=== PATIENT | female | born 1950 | race Caucasian/White ===

== ENCOUNTER 2025-04-29 08:11 | Day surgery (SDC) | payer MEDICARE, OTHER, SELFPAY ==
--- NOTE | 2025-04-21 16:08 | HP.PCM.OB_ITS ---
History and Physical Date of Admission: 04/29/25 Expand All Collapse All Pre-Op History and Physical HPI: The patient is a 75 year old female presenting for discussion regarding PMB, EM thickening. Pt with newly dx a. Fib s/p cardioversion x 2 now on eloquis. Scheduled for stress test on 04/23/25 pre-operative visit. She is scheduled for Hysteroscopy D&C and possible polypectomy, for Thickened Endometrium and PMB on 04/29/25. Procedure discussed along with risks, benefits and complications. Other alternatives discussed for management. Consent form signed? Yes. PAST MEDICAL HISTORY PAST MEDICAL HISTORY Diagnosis Date ? Hypertension ? PVC (premature ventricular contraction) ? Sciatica PAST SURGICAL HISTORY PAST SURGICAL HISTORY Procedure Laterality Date ? COLONOSCOPY 2008: 2016 ? D&C, DIAG AND/OR THERAPEUTIC 2010 ? LAPS SURG CHOLECYSTECTOMY W/CHOLANGIOGRAPHY 03-25-13 ? PAST SURGICAL HISTORY OF top teeth removal ? TONSILLECTOMY HX 1950s ? TUBAL LIGATION, 1980s with D&C CURRENT MEDICATIONS Current Outpatient Medications Medication Sig Dispense Refill ? miSOPROStol (CYTOTEC) 200 mcg tablet Insert 2 tablets vaginally night prior to EMB and 2 tablets morning of procedure. Each dose should be in vagina for 6-8 hours. 4 tablet 0 ? cyanocobalamin, vitamin B-12, (VITAMIN B-12 PO) Take 1 tablet by mouth once daily. ? cholecalciferol (VITAMIN D-3) 400 unit tab Take 1 tablet by mouth once daily. ? apixaban (ELIQUIS) 5 mg tab(s) Take 5 mg by mouth two times a day. ? flecainide (TAMBOCOR) 50 mg tablet Take 50 mg by mouth two times a day. ? estradiol (ESTRACE) 0.01 % (0.1 mg/gram) vaginal cream Use 0.25 g vaginally two times a week. ? atenolol 50 mg tablet Take 50 mg by mouth. 1/2 pill in morning and 1/2 pill at night (Patient taking differently: Take 50 mg by mouth. 1/2 pill in morning and 1/2 pill at night) ? ascorbic acid (VITAMIN C) 500 mg tablet Take 500 mg by mouth once daily. ? Multivitamin ORAL capsule Take 1 capsule by mouth once daily. ? guanfacine 1 mg ORAL tablet 0 No current facility-administered medications for this visit. ALLERGIES: Indocin [Indomethacin Sodium], Novacain [Procaine Hcl], Penicillins, Red Dye, Sulfa (Sulfonamide Antibiotics), Theophylline, and Toprol Xl [Metoprolo l] PERSONAL HISTORY: [SOCIAL HISTORY] [SOCIAL HISTORY] Social History Tobacco Use ? Smoking status: Never ? Smokeless tobacco: Never Substance Use Topics ? Alcohol use: No ? Drug use: No FAMILY HISTORY: FAMILY HISTORY FAMILY HISTORY Problem Relation Age of Onset ? Diabetes Mother ? Heart Father ? Anesthesia Father ? Coronary Artery Disease Father ? Heart Mother ? Hypertension Mother ? Hypertension Father ? Stroke Mother REVIEW OF SYMPTOMS: negative except as noted above PHYSICAL EXAMINATION: VITALS: Blood pressure 148/78, height 168.9 cm (5' 6.5), weight 100.2 kg (221 lb). GENERAL: The patient is well nourished, well hydrated in no acute distress. , The patient is oriented to time, place, and person. NECK: full range of motino LUNGS: Clear to auscultation bilaterally. no wheezes, rhonchi or rales HEART: Regular rate and rhythm, Normal heart sounds, and No murmurs or gallops IMPRESSION: 75yo with thickened EM and PMB PLAN: Hysteroscopy, D&C, possible polypectomy w/ symphion Pt has been counseled on risks/benefits and alternatives of surgery including but not limited to anesthesia, bleeding, infection, uterine perforation with subsequent injury to pelvic structures including bowel, bladder, ureters and vessels. Pt wishes to proceed with surgery at this time. Pre and post op instructions reviewed H/o A fib on Eloquis- last echo 01/2024 WNL (care everywhere note 10/26/24) - stress test scheduled for this week 04/23 - will have cardiology send pre op clearance I have reviewed and updated past medical and surgical history, medications and allergies Nishi Willis MD Office Visit on 04/21/2025 Note shared with patient
--- NOTE | 2025-04-24 00:59 | PAT.ANE_ITS ---
Pre-Assessment Diagnosis/Proposed Procedure Planned Operative Procedure(s): HYSTEROSCOPY D&C Anesthesia History Anesthesia History - aircraft shipping checker: Anesthesia History - aircraft shipping checker Hx Hospitalization No 04/21/25 11:25 Any Problems With Anesthesia No 04/21/25 11:25 Cholinesterase deficiency No 04/21/25 11:25 You/Your Family Experience No 04/21/25 11:25 fever (hyperthermia) with Relationship Recent Exposure to Contagious Disease Does patient have nerve No 04/21/25 11:25 stimulator Patient instructed to have device shut off --Does patient have Pacemaker or ICD? When Was Last Pacemaker Check QUESTION #4 FULL TEXT: You/Your Family Experience fever (hyperthermia) with Anesthesia Last Oral Intake Last Oral intake: Last Oral Intake NPO since Meds taken in AM with sips of water? Meds patient instructed to take am of surgery PONV PONV - aircraft shipping checker: PONV - aircraft shipping checker Female Yes 04/21/25 11:25 HX of Motion Sickness No 04/21/25 11:25 HX of N/V After Surgery No 04/21/25 11:25 Non-Smoker Yes 04/21/25 11:25 Duration of Surgery greater No 04/21/25 11:25 than 60 minutes Number of Risk Factors 2 04/21/25 11:25 PONV Score Moderate Risk 04/21/25 11:25 Respiratory Assessment Respiratory Assessment - aircraft shipping checker: Respiratory Tract Infection Hx - aircraft shipping checker Hx Respiratory Tract Infection No 04/21/25 11:25 STOP Sleep Apnea STOP Sleep Apnea - aircraft shipping checker: STOP Sleep Apnea - aircraft shipping checker Hx Hypertension Yes: CONTROLLED WITH MED 04/21/25 11:25 Hx Sleep Apnea Yes: MILD NO MACHINE 04/21/25 11:25 REQUIRED CPAP No 04/21/25 11:25 BIPAP No 04/21/25 11:25 Do you snore loudly (louder than talking or can be heard Do you often feel tired/ fatigued/ sleepy during daytime? Has anyone observed you stop breathing during sleep? STOP Results Positive 04/21/25 11:25 QUESTION #5 FULL TEXT : Do you snore loudly (louder than talking or can be heard through closed doors)? 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 Specify any problems Hx of Preganancy in last 3 No 04/21/25 11:25 Months Nurse Filling Out Transfusion DSCHRIBER 04/21/25 11:25 & Questions: Date: 04/21/25 04/21/25 11:25 Time: 04/21/25 11:25 Patient unable to answer at this time (ie. confused, unrespo /Reproduction History /Reproductive History - aircraft shipping checker: /Reproductive Hx- aircraft shipping checker Hx Now No 04/21/25 11:25 Gestational Age (in weeks): EDC: Hx Hx Para Hx Section SAB No 04/21/25 11:25 Does the father of the baby or his family experience fever w Father of the baby Malignant Hypertension history comment [facility] Medical History (Updated 04/21/25 @ 11:41 by Claudia Crockett) Wears glasses Wears partial dentures Wears dentures Post-menopausal Anxiety Arthritis Ambulates with cane Low iron Dietary restriction Difficulty swallowing History of ulceration History of hiatal hernia History of diverticulitis Gastric reflux Shortness of breath on exertion Sleep apnea Non-smoker History of edema Purpura History of echocardiogram History of stress test History of cardioversion Cardiology follow-up encounter Hypertension History of atrial fibrillation Home Medications ?Medication ?Instructions ?Recorded ?Last Taken ?Type wjwhyxoq-hnsaatqlk-ncbhajfx oral 5 ml PO TID PRN STOMA CH 04/21/25 Unknown History suspension apixaban 5 mg tablet (Eliquis) 5 mg PO BID 04/21/25 Un known History ascorbic acid (vitamin C) 500 mg 500 mg PO DAILY 04/21 Unknown History tablet (C-500) atenolol 25 mg tablet 12.5 mg PO BID 04/21/25 Unkn own History cholecalciferol (vitamin D3) 50 50 mcg PO DAILY Unknown History mcg (2,000 unit) tablet (Vitamin D3) flecainide 50 mg tablet 50 mg PO Q12H 04/21/25 Unkno wn History guanfacine 1 mg tablet 1 mg PO QHS 04/21/25 Unknown History mecobalamin (vitamin B12) 1,000 1,000 mcg PO DAILY 06/03 Unknown History mcg lozenges multivitamin (Daily Multi-Vitamin 1 tab PO DAILY 04/21 Unknown History tablet) omeprazole 40 mg capsule,delayed 40 mg PO DAILY Unknown History release polyethylene glycol 400 0.25 % eye 2 drp ophthalmic (e ye) PRN PRN dry 04/21/25 Unknown History drops (Blink Tears) eyes Allergy/AdvReac Type Severity Reaction Status Date / Time indomethacin (From Indocin) Allergy Intermediate PT UNSURE Verified 04/21/25 11:16 OF REACTION procaine (From Novocain) Allergy Intermediate Other Verified 04/21/25 11:16 theophylline Allergy Intermediate PT UNSURE Verified 04/21/25 11:16 OF REACTION adhesive tape AdvReac Intermediate Rash Verified 04/21/25 11:16 metoprolol (From Toprol XL) AdvReac Intermediate Other Verified 04/21/25 11:16 Penicillins AdvReac Intermediate Itching Verified 04/21/25 11:16 Sulfa (Sulfonamide AdvReac Intermediate Itching Verified 04/21/25 11:16 Antibiotics) Surgical History (Updated 04/21/25 @ 11:41 by Claudia Crockett) Hx of right cataract extraction Hx of left cataract extraction Hx of colonoscopy Hx of cholecystectomy Hx of tonsillectomy Social History Smoking Status: Never smoker Audit: Pertinent Findings Pertinent Findings EKG Perinent findings: January 20, 2025. Sinus bradycardia with first-degree AV block. Intraventricular conduction defect. Left axis?possible anterior fascicular block. Consider LVH. Consider old anterior infarct. Stress test pertinent findings: 04/23/2025. Nondiagnostic for ischemia given baseline EKG changes, however no cardiac symptoms at maximal workload. Patient achieved 4.2 METS. Test was terminated due to fatigue. Echo (EF%) pertinent findings: January 21, 2024. EF is 62%. No hemodynamically significant valvular disease. Right ventricular systolic pressure is 25 mmHg. Consult pertinent findings: 04/23/2025. Dr. Polanco?cardiology. 1. Patient is low cardiovascular risk for proposed procedure. Okay to hold Eliquis prior to procedure. Continue atenolol and flecainide perioperatively. Additional pertinent findings: Coronary angiography. September 16, 2024. Mild nonobstructive coronary artery disease. Total calcium score is 95 involving the LAD. Recommendation Anesthesia Recommendation Anesthesia recommendation: OPTIMIZED for anesthesia
[2025-04-29] VITALS (11 sets, daily range): BP systolic 108–153; BP diastolic 56–91; PULSE 49–60; RESP 16–18; TEMP 36.2–36.6; O2SAT 99–100; BMI 34.6
--- NOTE | 2025-04-29 08:27 | PCM.PRE.AN2 ---
ASA Classification* ASA Classification ASA Classification: 2 Assessment & Plan Anesthesia* Anesthesia Assessment Anesthesia Assessment: Discussed sedation and/or anesthesia options, risks, benefits, and alternatives with patient/parents/legal guardian/POA. Questions invited. The patient/parents/legal guardian/POA seems to understand and agrees to proceed with anesthesia plan. Reviewed the physical assessment, medical history, allergy history and patient home medications list prior to surgery/procedure/anesthetic and documented any changes. Performed airway and anesthesia risk assessments. Anesthesia Type Anesthesia Type: MAC Anesthesia Focused Assessment* Airway Assessment Mouth opens: >3 cm Mallampati Score: II Labs Anesthesia Preop lab: CBC CHEMISTRY COAG Pre-Assessment Diagnosis/Proposed Procedure Planned Operative Procedure(s): HYSTEROSCOPY D&C Anesthesia History Anesthesia History - visual stylist: Anesthesia History - visual stylist Hx Hospitalization No 04/21/25 11:25 Any Problems With Anesthesia No 04/21/25 11:25 Cholinesterase deficiency No 04/21/25 11:25 You/Your Family Experience No 04/21/25 11:25 fever (hyperthermia) with Relationship Recent Exposure to Contagious Disease Does patient have nerve No 04/21/25 11:25 stimulator Patient instructed to have device shut off --Does patient have Pacemaker or ICD? When Was Last Pacemaker Check QUESTION #4 FULL TEXT: You/Your Family Experience fever (hyperthermia) with Anesthesia Last Oral Intake Last Oral intake: Last Oral Intake NPO since Meds taken in AM with sips of water? Meds patient instructed to take am of surgery PONV PONV - visual stylist: PONV - visual stylist Female Yes 04/21/25 11:25 HX of Motion Sickness No 04/21/25 11:25 HX of N/V After Surgery No 04/21/25 11:25 Non-Smoker Yes 04/21/25 11:25 Duration of Surgery greater No 04/21/25 11:25 than 60 minutes Number of Risk Factors 2 04/21/25 11:25 PONV Score Moderate Risk 04/21/25 11:25 Respiratory Assessment Respiratory Assessment - visual stylist: Respiratory Tract Infection Hx - visual stylist Hx Respiratory Tract Infection No 04/21/25 11:25 STOP Sleep Apnea STOP Sleep Apnea - visual stylist: STOP Sleep Apnea - visual stylist Hx Hypertension Yes: CONTROLLED WITH MED 04/21/25 11:25 Hx Sleep Apnea Yes: MILD NO MACHINE 04/21/25 11:25 REQUIRED CPAP No 04/21/25 11:25 BIPAP No 04/21/25 11:25 Do you snore loudly (louder than talking or can be heard Do you often feel tired/ fatigued/ sleepy during daytime? Has anyone observed you stop breathing during sleep? STOP Results Positive 04/21/25 11:25 QUESTION #5 FULL TEXT : Do you snore loudly (louder than talking or can be heard through closed doors)? 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 Specify any problems Hx of Preganancy in last 3 No 04/21/25 11:25 Months Nurse Filling Out Transfusion DSCHRIBER 04/21/25 11:25 & Questions: Date: 04/21/25 04/21/25 11:25 Time: 11:04/21/25 11:25 Patient unable to answer at this time (ie. confused, unrespo /Reproduction History /Reproductive History - visual stylist: /Reproductive Hx- visual stylist Hx Now No 04/21/25 11:25 Gestational Age (in weeks): EDC: Hx Hx Para Hx Section SAB No 04/21/25 11:25 Does the father of the baby or his family experience fever w Father of the baby Malignant Hypertension history comment Active Medications Active Medications: Current Medications Generic Name Dose Route Start Last Admin Trade Name Freq PRN Reason Stop Dose Admin Lactated Ringer's 1,000 mls @ 15 mls/hr 04/29/25 08:30 IV .Q48H JOSE PFSH Medical History Wears glasses Wears partial dentures Wears dentures Post-menopausal Anxiety Arthritis Ambulates with cane Low iron Dietary restriction Difficulty swallowing History of ulceration History of hiatal hernia History of diverticulitis Gastric reflux Shortness of breath on exertion Sleep apnea Non-smoker History of edema Purpura History of echocardiogram History of stress test History of cardioversion Cardiology follow-up encounter Hypertension History of atrial fibrillation Home Medications ?Medication ?Instructions ?Recorded ?Last Taken ?Type qpbprhjw-honizadyb-kprbkcus oral 5 ml PO TID PRN STOMACH 04/21/25 Unknown History suspension apixaban 5 mg tablet (Eliquis) 5 mg PO BID 04/21/25 Unknown History ascorbic acid (vitamin C) 500 mg 500 mg PO DAILY 04/21/25 Unknown History tablet (C-500) atenolol 25 mg tablet 12.5 mg PO BID 04/21/25 Unknown History cholecalciferol (vitamin D3) 50 50 mcg PO DAILY 04/21/25 Unknown History mcg (2,000 unit) tablet (Vitamin D3) flecainide 50 mg tablet 50 mg PO Q12H 04/21/25 Unknown History guanfacine 1 mg tablet 1 mg PO QHS 04/21/25 Unknown History mecobalamin (vitamin B12) 1,000 1,000 mcg PO DAILY 04/21/25 Unknown History mcg lozenges multivitamin (Daily Multi-Vitamin 1 tab PO DAILY 04/21/25 Unknown History tablet) omeprazole 40 mg capsule,delayed 40 mg PO DAILY 04/21/25 Unknown History release polyethylene glycol 400 0.25 % eye 2 drp ophthalmic (eye) PRN PRN dry 04/21/25 Unknown History drops (Blink Tears) eyes Allergy/AdvReac Type Severity Reaction Status Date / Time indomethacin (From Indocin) Allergy Intermediate PT UNSURE Verified 04/21/25 11:16 OF REACTION procaine (From Novocain) Allergy Intermediate Other Verified 04/21/25 11:16 theophylline Allergy Intermediate PT UNSURE Verified 04/21/25 11:16 OF REACTION adhesive tape AdvReac Intermediate Rash Verified 04/21/25 11:16 metoprolol (From Toprol XL) AdvReac Intermediate Other Verified 04/21/25 11:16 Penicillins AdvReac Intermediate Itching Verified 04/21/25 11:16 Sulfa (Sulfonamide AdvReac Intermediate Itching Verified 04/21/25 11:16 Antibiotics) Surgical History Hx of right cataract extraction Hx of left cataract extraction Hx of colonoscopy Hx of cholecystectomy Hx of tonsillectomy Social History Smoking Status: Never smoker Review of Systems (Anesthesia) ROS Narrative System reviewed and no additional complaints, except as documented.
[2025-04-29 09:02] LABS: Hematocrit 36.7 % (37-47); Hemoglobin 11.9 g/dL (12.0-15.0); Mean Corp Hgb Conc 32.4 g/dL (32-36); Mean Corpuscular Volume 94.6 fL (81-99); Mean Platelet Vol. 9.8 fl (6.2-12.0); Platelet Count 256 K/mm3 (150-450); RBC Distribution Width CV 12.7 % (11.6-14.6); RBC Distribution Width SD 43.8 fl (35.1-43.9); Red Blood Count 3.88 M/mm3 (4.2-5.4); White Blood Count 4.5 K/mm3 (4.4-11.0)
[2025-04-29] MEDS: Lactated Ringers 1,000 ML 15 ML IV (09:08)
[2025-04-29 09:35] LABS: Anion Gap 9 (5-15); BUN 11 mg/dL (4-19); BUN/Creat Ratio 17.4 RATIO (10-20); Calcium,Total 9.1 mg/dL (7.6-11.0); Carbon Dioxide 26.5 mmol/L (21.0-32.0); Chloride 105 mmol/L (98-108); Estimated Creatinine Clearance 72.80 ml/min (50-250); Glucose 102 mg/dL (70-99); Potassium 4.1 mmol/L (3.3-5.1)
[2025-04-29] MEDS: Midazolam 2 MG/2 ML Syringe IV (09:35)
[2025-04-29] MEDS: Lidocaine 1% (5 ml sdv) 5 ML Vial 4 ML IV (09:38)
--- NOTE | 2025-04-29 09:54 | PCM.DC ---
Discharge Instructions DC O2, CPAP, BIPAP needs Home O2 Discharge instructions: No Dressing / Incision May resume sexual activity in: 1 week Dressing / Incision Call your doctor if you observe: Fever of 101 or Higher, Inability to urinate, Using more than 1 pad per hour and Uncontrolled pain Follow Up Care Please Follow Up With: Nishi Aponte MD When: I will call you with pathology results in 1-2 weeks, if you feel you need an appointment please call [phone] Test Results: Test results from this visit will be discussed in further detail at your follow-up appointment, if applicable. Discharge Plan Admission Attending Provider: Nishi Aponte Primary Care Provider: Shannon Coello Instructions Print Language: [place] Discharge Orders/Prescriptions Prescriptions: No Action guanfacine 1 mg tablet 1 mg PO QHS atenolol 25 mg tablet 12.5 mg PO BID Eliquis 5 mg tablet 5 mg PO BID flecainide 50 mg tablet 50 mg PO Q12H omeprazole 40 mg capsule,delayed release(DR/EC) 40 mg PO DAILY goicmvhx-hybkspdig-qowhwtnq Suspension 5 ml PO TID PRN (Reason: STOMACH) multivitamin [Daily Multi-Vitamin] Tablet 1 tab PO DAILY mecobalamin (vitamin B12) 1,000 mcg lozenge 1,000 mcg PO DAILY Rx Instructions: allow to dissolve in mouth OR may chew lightly before swallowing cholecalciferol (vitamin D3) [Vitamin D3] 50 mcg (2,000 unit) tablet 50 mcg PO DAILY ascorbic acid (vitamin C) [C-500] 500 mg tablet 500 mg PO DAILY Blink Tears 0.25 % drops 2 drp ophthalmic (eye) PRN PRN (Reason: dry eyes) Referrals / Follow Up: Shannon Coello MD [Primary Care Provider, Medical] Disposition Disposition (needs filled in before D/C Order can be placed): Home, Self Care
--- NOTE | 2025-04-29 09:55 | PCM.OPRPT ---
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 Heating And Ventilating Worker: kathya crooks ms3 Tasks completed by first line production supervisor: Retracting Type of Anesthesia: MAC RN Documented Start/Stop Times: Operation Date: 04/29/25 10:00 Case Time Into Pre-Op 04/29/25 08:23 Anesthesia Start 04/29/25 09:33 Into Room 04/29/25 09:33 Procedure Start 04/29/25 09:45 Procedure Start Time: 09:45 Procedure Stop Time: 09:54 Select all DRAINS/GRAFTS/IMPLANTS that apply: None Estimated Blood Loss: <5cc Fluids Replaced: 300 Specimen collected: Yes Description of specimen(s) removed: endometrial curettings, Endocervical polyp Description of surgery: Informed consent was obtained the patient was taken the operating room she was placed in supine position. She was given anesthesia. She was then placed in the [facility] where she was prepped and draped in the normal sterile fashion. At this time the weighted speculum was placed in the posterior fornix of vagina. Single-tooth tenaculum was used to gently grasp the anterior lip the cervix. At this time the uterine cavity was sounded to approximately 7 cm. Gentle dilatation was performed once adequate dilatation of the cervix was achieved the hysteroscope using normal saline as a distention medium was placed. Tubal ostia visualized. small endocervical polyp noted- otherwise endometrium appears atrophic- Symphion resecting device used to obtain endometrial curettings and to perform endocervical polypectomy. Tissue will be sent to pathology for evaluation. Tenaculum removed. Good hemostasis. Instrument, lap count correct x 2. Vaginal Sweep was negative. Surgical Findings: atrophic endometrium, small endocervical polyp Complications Complications: No Admit VTE Documentation VTE Present on Admission: Yes VTE Mechan Device Prophylaxis: SCD's VTE Pharm Prophylaxis ordered?: No Reason prophylaxis not ordered: Treatment Not Indicated (patient on eloquis )
--- NOTE | 2025-04-29 10:00 | EMB_PTH ---
PATIENT: [facility] LOC: [facility] U#:[id number] AGE/SX: 75/F ROOM: RE04/29/[address]: Dr. Nishi Aponte, MDDOB: 1950 BED: DIS: 04/29/2025 SPEC #: [id number] RECD: 04/29/25 10:34 STATUS: LEANNA DANIELLE #: [id number] BEN: 04/29/25 10:[address]: Nishi Aponte DEPT: SURGICAL PATHOLOGY RECD BY: Azael Harmon ENTERED: 04/29/25 11:56 SP TYPE: ENDOM BX/C ENAHR DR: Dr. Shannon Coello MD Tissues: A - Endometrium, NOS Procedures: Surgery Specimen Level IV HEADER OPERATION: Hysteroscopy, D&C, polypectomy PRE-OP DIAGNOSIS: Thickened endometrium, post menopausal bleeding TISSUE SUBMITTED: A- Endometrial curettings , endocervical polyp MICROSCOPIC DIAGNOSIS A. Endometrium and endocervix, curettage: * Endometrial polyp with cystic atrophy, benign * Endocervical tissue with slight chronic cystic endocervicitis MICROSCOPIC DESCRIPTION Slides are reviewed. GROSS DESCRIPTION A. Received in formalin labeled with the patient's name and date of . Designated as endometrial curettings, endocervical polyp is a 2.4 x 1.0 x 0.3 cm aggregate of pink to red, cauterized irregular tissue fragments. Entirely submitted in 1 cassette. AL 04/29/2025 CPT:81949
--- NOTE | 2025-04-29 12:57 | PCM.POST.ANE ---
Anesthesia: Postop Eval I Current Vital Signs Temperature: 97.5 F Pulse Rate: 60 Blood Pressure: 149/74 Respiratory Rate: 16 Pulse Ox: 100 Oxygen Delivery Method: Room Air Assessment Airway patent: Yes Spontaneous unlabored respirations: Yes Mental status: Awake nausea: No Vomiting: No Anesthesia Complication: No Fluid Hydration Crystalloid volume administer (ml): 100 Total IV fluid infused: 100 Progress Note Anesthesia document: Postop Eval 1 completed: Yes
--- NOTE | 2025-04-29 13:02 | PCM.POSTANE2 ---
Anesthesia Postop Eval I Sum Postop Eval Completion status Anesthesia document: Postop Eval 1 completed: Yes Anesthesia Postop Eval I Summary Anesthesia Postop Eval I Summary: Anesthesia Postop Eval I: Assessment Summary Airway patent Yes 04/29/25 12:58 Spontaneous unlabored Yes 04/29/25 12:58 respirations Mental status Awake 04/29/25 12:58 nausea No 04/29/25 12:58 Vomiting No 04/29/25 12:58 Anesthesia Postop Eval I: Fluid Summary Crystalloid volume administer 100 04/29/25 12:58 (ml) Colloids volume administered ( ml) Blood Product volume administered (ml) Total IV fluid infused 100 04/29/25 12:58 Anesthesia Postop Eval I: Summary Notes Anesthesia Complication No 04/29/25 12:58 Anesthesia Complication Comment: Post-operative progress note Anesthesia: Postop Eval II Evaluation Mental status: Awake Pain Level: 0 nausea: No Vomiting: No
== END 2025-04-29 12:00 | disposition home or self-care (01) ==
LOC: SDC 08:18 → AC 08:19
PROVIDERS: PCP Family Medicine; Referring Provider Obstetrics & Gynecology; Visit Provider Obstetrics & Gynecology
PROC: 0UB98ZZ Excision of Uterus, Via Natural or Artificial Opening Endoscopic (ICD-10-PCS; CPT 58558; principal; 2025-04-29 09:45)
DX: N84.1 Polyp of cervix uteri (principal); I48.91 Unspecified atrial fibrillation; I10 Essential (primary) hypertension; Z79.899 Other long term (current) drug therapy; Z79.01 Long term (current) use of anticoagulants; K21.9 Gastro-esophageal reflux disease without esophagitis; N84.0 Polyp of corpus uteri; N72 Inflammatory disease of cervix uteri
CPT/HCPCS: 58558; 00952; 80048; 85027; 88305; A4216; J2405